=== PATIENT | male | born 1985 | race Caucasian/White ===

== ENCOUNTER 2018-07-17 02:32 | Emergency (ER) | payer SELFPAY ==
[~2018-07-17] VITALS: Ht 177.8 cm; Wt 68.0 kg
[2018-07-17 02:35] VITALS: Ht 177.8 cm; Wt 68.0 kg
[2018-07-17] MEDS ORDERED: CYCLOBENZAPRINE10 MG PO (02:36)
[2018-07-17] MEDS ORDERED: SKELAXIN800 MG PO (03:06)
[2018-07-17] MEDS ORDERED: NAPROSYN500 MG PO (03:06)
[2018-07-17 03:27] VITALS: BP 120/85
== END 2018-07-17 03:27 | disposition home or self-care (01) ==
LOC: D.ER 02:32
DX: M54.5 Low back pain (principal); M62.838 Other muscle spasm

== ENCOUNTER 2018-07-19 09:31 | Emergency (ER) | payer SELFPAY ==
[~2018-07-19] VITALS: Ht 177.8 cm; Wt 68.2 kg
[~2018-07-19 09:31] MED LIST: CYCLOBENZAPRINE10 MG PO; NAPROSYN500 MG PO; SKELAXIN800 MG PO
[2018-07-19 09:43] VITALS: Ht 177.8 cm; Wt 68.2 kg
[2018-07-19] MEDS ORDERED: GUAIFENESI100 MG/5 M PO (10:33)
[2018-07-19] MEDS ORDERED: AMOXICILLIN500 M1 PO (10:33)
[2018-07-19] MEDS ORDERED: VOLTAREN75 MG PO (10:34)
[2018-07-19 11:01] VITALS: BP 129/86
== END 2018-07-19 11:02 | disposition home or self-care (01) ==
LOC: D.ER 09:31
DX: J06.9 Acute upper respiratory infection, unspecified (principal)